=== PATIENT | male | born 1945 | race African-American/Black ===

== ENCOUNTER → 2016-09-04 | Outpatient (CLI) | payer OTHER | LOC: PUL 09:30 | DX: J42 Unspecified chronic bronchitis (principal); F17.200 Nicotine dependence, unspecified, uncomplicated; R06.02 Shortness of breath ==

== ENCOUNTER → 2017-01-02 | Outpatient (CLI) | payer OTHER | LOC: CAT 10:37 | DX: R05 Cough (principal) ==